=== PATIENT | female | born 1970 | race Caucasian/White ===

== ENCOUNTER 2018-04-05 09:59 | Observation (INO) ==
[2018-04-05] MEDS ORDERED: *HR* FentaNYL (PF) 100 MCG/2 ML VIAL IVP ONE ×2 (10:10→12:09)
[2018-04-05] MEDS ORDERED: Ondansetron 4 MG/2 ML VIAL IVP ONE (10:10)
--- NOTE | 2018-04-05 10:20 | Emergency Department Note ---
Disposition Clinical Impression: Biliary colic Disposition: Admitted As Inpatient Time of Disposition: 16:55 Abdominal Pain HPI - General Chief Complaint: ED Abdominal Pain Stated Complaint: Gallbladder pain,vomiting,ABD tenderness Time Seen by Provider: 04/05/18 10:06 Source: patient Mode of arrival: ambulatory Limitations: no limitations Nursing Notes Reviewed: Yes Vital Signs Reviewed: Yes - History of Present Illness Pt Subjective Complaint: abdominal pain Onset (ago): day(s) Consistency: constant Location: RUQ, epigastric Pain Severity: severe Pain Scale: 10 Quality: aching Radiation: RUQ Migration to: no migration Improves with: nothing Worsens with: nothing Associated symptoms: Reports: nausea, fever, chills Treatments prior to arrival: other (Seen in the emergency department several days ago for similar symptoms and had a CT scan.) - Related Data Home Medications Medication Instructions Recorded Confirmed HYDROcodone/Acet 7.5/325 mg [[place] 1 tab PO Q6H PRN 02/23/15 04/05/18 7.5-325 mg] Montelukast [Singulair] 10 mg PO DAILY 02/23/15 04/05/18 Loratadine [Allergy Relief] 10 mg PO DAILY 04/29/16 04/05/18 SUMAtriptan succinate [Imitrex] 50 mg PO Q2H PRN 04/29/16 04/05/18 Beclomethasone Diprop 80mcg [Qvar 1 puff IH BID 04/05/18 04/05/18 80 mcg] Celecoxib [Celebrex] 100 mg PO BID 04/05/18 04/05/18 Linaclotide [Linzess] 290 mcg PO DAILY 04/05/18 04/05/18 Pantoprazole Sodium [Protonix] 40 mg PO DAILY 04/05/18 04/05/18 Ranitidine HCl [Acid Vp Rheumatology] 150 mg PO DAILY 04/05/18 04/05/18 Tizanidine HCl 4 mg PO TID 04/05/18 04/05/18 Topiramate [Topamax] 100 mg PO BID 04/05/18 04/05/18 lamoTRIgine [Lamictal] 100 mg PO BID 04/05/18 04/05/18 Previous Rx's Medication Instructions Recorded Albuterol Sulfate [Albuterol 2 puff IH QID #1 inhaler 07/02/17 Inhaler] Ondansetron [Zofran ODT] 8 mg SL Q8H #15 tab 04/02/18 Dicyclomine [Bentyl] 10 mg PO QID #20 capsule 04/03/18 Allergies Allergy/AdvReac Type Severity Reaction Status Date / Time sulfamethoxazole Allergy Hives Verified 04/02/18 19:05 [From Bactrim] trimethoprim [From Bactrim] Allergy Hives Verified 04/02/18 19:05 Amoxicillin [From Augmentin] AdvReac Vomiting Verified 04/02/18 19:05 clavulanic acid AdvReac Vomiting Verified 04/02/18 19:05 [From Augmentin] Constitutional: Reports: fever, chills Eyes: Reports: as per HPI ENT ED: Reports: as per HPI Cardiovascular: Reports: as per HPI Respiratory: Reports: as per HPI Gastrointestinal: Reports: abdominal pain, nausea Genitourinary: Reports: as per HPI Musculoskeletal: Reports: as per HPI Integumentary: Reports: as per HPI Neurological: Reports: as per HPI Psychiatric: Reports: as per HPI Endocrine: Reports: as per HPI Hematological/Lymphatic: Reports: as per HPI Allergic/Immunologic: Reports: as per HPI Abdominal Pain PMH - Past Medical History Medical history: Reports: GERD 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 HAND history: Reports: bilateral tubal ligation Psychiatric history: Reports: bipolar - Social History Smoking status: Never smoker Alcohol use: Reports: none Drug use: Reports: none Physical Exam - General Limitations: no limitations General appearance: alert - Head Head exam: atraumatic - Eye Eye exam: Present: normal appearance - ENT ENT exam: normal exam - Neck Neck exam: Present: normal inspection - Chest Chest inspection: Present: normal inspection, symmetric chest wall rise - Respiratory Respiratory exam: Present: normal lung sounds bilaterally - Cardiovascular Cardiovascular exam: Present: regular rate, normal rhythm, normal heart sounds - Abdominal Exam Abdominal exam: Present: soft, tenderness (Diffusely tender with mild voluntary guarding. No peritonitis) Abdominal tenderness: Present: RUQ, epigastrium - Rectal Exam Rectal exam: Present: deferred - Extremities Exam Extremities exam: Present: normal inspection - Neurological Exam Neurological exam: Present: alert, oriented X3, CN II-XII intact - Psychiatric Psychiatric exam: Present: anxious - Skin Skin exam: Present: warm, dry, intact Course Course Narrative: Patient presents with upper abdominal pain. Her symptoms persist after an ED workup several days ago. I did review the transcribed report of her CT abdomen and pelvis dated 04/02/18 which showed a suspected lodged gallstone in the gallbladder neck. Concern for acute cholecystitis today. Workup initiated - Consultations Consultation #1: Call placed to Dr. Kent, surgery Vital Signs Temperature 98.6 F 04/05/18 10:01 Pulse Rate 92 04/05/18 10:01 Respiratory Rate 16 04/05/18 10:01 Blood Pressure 136/91 04/05/18 10:01 O2 Sat by Pulse Oximetry 99 04/05/18 10:01 Temperature 98.8 F 04/05/18 14:51 Pulse Rate 57 04/05/18 14:51 Respiratory Rate 16 04/05/18 15:52 Blood Pressure 138/77 04/05/18 14:51 O2 Sat by Pulse Oximetry 97 04/05/18 15:52 Oxygen Delivery Oxygen Delivery Room Air Abdominal Pain - Medical Records Medical records reviewed: Yes I reviewed the patient's medical records. - Lab Data Lab results reviewed: Yes I reviewed the patient's lab results. Result diagrams: 04/05/18 10:22 04/05/18 10:22 Lab Results 04/05/18 04/05/18 04/05/18 Range/Units 10:22 10:22 10:22 WBC 7.0 (4.3-11.1) K/mcL RBC 5.29 H (3.82-4.97) M/mcL Hgb 16.0 H (11.5-15.4) g/dL Hct 46.1 H (35.3-44.9) % MCV 87.1 (83.0-100.0) fL MCH 30.2 (28.0-33.3) pg MCHC 34.7 (31.6-35.5) g/dL RDW 12.4 (11.5-14.5) % Plt Count 295 (140-400) K/mcL MPV 10.0 (9.4-12.4) fL Immature Gran % 0.4 (0-4) % Seg Neutrophils % 70.8 % Lymphocytes % 22.2 % Monocytes % 5.6 % Eosinophils % 0.3 % Basophils % 0.7 % Neutrophils # 5.0 (1.6-8.9) K/mcL Lymphocytes # 1.6 (0.6-4.6) K/mcL Monocytes # 0.4 (0.0-1.3) K/mcL Eosinophils # 0.0 (0.0-0.6) K/mcL Basophils # 0.1 (0.0-0.2) K/mcL PT 13.7 H (9.4-12.1) Seconds INR 1.2 Sodium 137 (136-145) mEq/L Potassium 3.4 L (3.5-5.1) mEq/L Chloride 105 (98-107) mEq/L Carbon Dioxide 18 L (23-29) mEq/L BUN 11 (6-20) mg/dL Creatinine 0.82 (0.60-1.20) mg/dL Est GFR ( Amer) > 60 (> 60) Est GFR (Non-Af Amer) > 60 (> 60) BUN/Creatinine Ratio 13 (6-26) Glucose 94 (70-105) mg/dL Calculated Osmolality 283 (280-300) Calcium 9.7 (8.6-10.3) mg/dL Total Bilirubin 0.5 (0.3-1.0) mg/dL AST 12 L (13-39) Units/L ALT 6 L (7-52) Units/L Alkaline Phosphatase 60 (34-104) Units/L Serum Total Protein 7.4 (6.4-8.9) g/dL Albumin 4.5 (3.5-5.7) g/dL Globulin 2.9 (2.4-3.5) g/dL Albumin/Globulin Ratio 1.6 (1.1-2.2) Lipase 10 L (11-82) Units/L Urine Test (Negative) Blood Type Antibody Screen 04/05/18 04/05/18 Range/Units 10:22 10:28 WBC (4.3-11.1) K/mcL RBC (3.82-4.97) M/mcL Hgb (11.5-15.4) g/dL Hct (35.3-44.9) % MCV (83.0-100.0) fL MCH (28.0-33.3) pg MCHC (31.6-35.5) g/dL RDW (11.5-14.5) % Plt Count (140-400) K/mcL MPV (9.4-12.4) fL Immature Gran % (0-4) % Seg Neutrophils % % Lymphocytes % % Monocytes % % Eosinophils % % Basophils % % Neutrophils # (1.6-8.9) K/mcL Lymphocytes # (0.6-4.6) K/mcL Monocytes # (0.0-1.3) K/mcL Eosinophils # (0.0-0.6) K/mcL Basophils # (0.0-0.2) K/mcL PT (9.4-12.1) Seconds INR Sodium (136-145) mEq/L Potassium (3.5-5.1) mEq/L Chloride (98-107) mEq/L Carbon Dioxide (23-29) mEq/L BUN (6-20) mg/dL Creatinine (0.60-1.20) mg/dL Est GFR ( Amer) (> 60) Est GFR (Non-Af Amer) (> 60) BUN/Creatinine Ratio (6-26) Glucose (70-105) mg/dL Calculated Osmolality (280-300) Calcium (8.6-10.3) mg/dL Total Bilirubin (0.3-1.0) mg/dL AST (13-39) Units/L ALT (7-52) Units/L Alkaline Phosphatase (34-104) Units/L Serum Total Protein (6.4-8.9) g/dL Albumin (3.5-5.7) g/dL Globulin (2.4-3.5) g/dL Albumin/Globulin Ratio (1.1-2.2) Lipase (11-82) Units/L Urine Test Negative (Negative) Blood Type O POSITIVE Antibody Screen NEGATIVE - Radiology Data Radiology results reviewed: Yes I reviewed the patient's radiology results.
[2018-04-05 10:41] LABS: Basophils # 0.1 K/mcL (0.0-0.2); Basophils % 0.7 %; Eosinophils % 0.3 %; Hematocrit 46.1 % (35.3-44.9); Immature Granulocytes % 0.4 % (0-4); Lymphocytes # 1.6 K/mcL (0.6-4.6); Lymphocytes % 22.2 %; Mean Corpuscular HGB Conc 34.7 g/dL (31.6-35.5); Mean Corpuscular Hemoglobin 30.2 pg (28.0-33.3); Mean Corpuscular Volume 87.1 fL (83.0-100.0); Monocytes # 0.4 K/mcL (0.0-1.3); Monocytes % 5.6 %; Platelet Count 295 K/mcL (140-400); Red Blood Count 5.29 M/mcL (3.82-4.97); Red Cell Distribution Width 12.4 % (11.5-14.5); Segmented Neutrophils % 70.8 %
[2018-04-05 10:52] LABS: INR 1.2; Prothrombin Time 13.7 Seconds (9.4-12.1)
[2018-04-05 11:30] LABS: Alanine Aminotransferase 6 Units/L (7-52); Albumin 4.5 g/dL (3.5-5.7); Albumin/Globulin Ratio 1.6 (1.1-2.2); Alkaline Phosphatase 60 Units/L (34-104); Aspartate Amino Transferase 12 Units/L (13-39); BUN/Creatinine Ratio 13 (6-26); Bilirubin,Total 0.5 mg/dL (0.3-1.0); Blood Urea Nitrogen 11 mg/dL (6-20); Calcium 9.7 mg/dL (8.6-10.3); Carbon Dioxide 18 mEq/L (23-29); Chloride 105 mEq/L (98-107); Globulin 2.9 g/dL (2.4-3.5); Glucose 94 mg/dL (70-105); Lipase 10 Units/L (11-82); Osmolality,Calculated 283 (280-300); Potassium 3.4 mEq/L (3.5-5.1); Sodium 137 mEq/L (136-145); Total Protein 7.4 g/dL (6.4-8.9); eGFR For Non-African Americans > 60 (> 60)
[2018-04-05] MEDS ORDERED: Naloxone 0.4 MG/ML INJ IVP PRN (12:44)
[2018-04-05] MEDS ORDERED: Ondansetron 4 MG/2 ML VIAL IVP PRN ×2 (12:44→13:54)
[2018-04-05] MEDS ORDERED: *HR* Morphine Soln 10 MG/5 ML UDC PO PRN (12:48)
[2018-04-05] MEDS ORDERED: OXYCODONE Oral CONC 10 MG/0.5 ML ORAL.SYG SL PRN (12:48)
[2018-04-05] MEDS ORDERED: Acetaminophen 325 MG TABLET PO PRN (12:48)
[2018-04-05] MEDS ORDERED: Potassium Chloride 20 MEQ, Lidocaine 1% 2 ML in D5% in Water 250 ML IVPB ONE (12:49)
[2018-04-05] MEDS ORDERED: SUMAtriptan succinate 50 MG TABLET PO PRN (13:20)
--- NOTE | 2018-04-05 13:41 | General Surg History&Physical ---
<Misa Zaidi - Last Filed: 04/05/18 13:35> Date of Encounter: 04/05/18 Time of Encounter: 13:15 Assessment and Plan (1) Symptomatic cholelithiasis Current Visit: Yes Status: Acute The assessment and plan as outlined above was discussed with the patient and/or family members who expressed understanding and agreement. All questions were answered. Admit to Dr. Kent's service Clear liquids NPO after midnight IV fluids Supportive care and pain control PPI therapy daily IS every 1 hour while awake Ambulate hallways TID with assistance AM labs- CBC, BMP, Hepatic panel Plan for laparoscopic cholecystectomy with cholangiogram with Dr. Kent in the next 24 hours (2) Nausea and vomiting Current Visit: No Status: Acute The assessment and plan as outlined above was discussed with the patient and/or family members who expressed understanding and agreement. All questions were answered. IV fluids Supportive care Qualifiers: Vomiting type: unspecified Vomiting Intractability: non-intractable Qualified Code(s): R11.2 - Nausea with vomiting, unspecified (3) GERD (gastroesophageal reflux disease) Current Visit: Yes Status: Acute The assessment and plan as outlined above was discussed with the patient and/or family members who expressed understanding and agreement. All questions were answered. PPI therapy daily Qualifiers: Esophagitis presence: esophagitis presence not specified Qualified Code(s) : K21.9 - Gastro-esophageal reflux disease without esophagitis (4) Asthma Current Visit: Yes Status: Chronic The assessment and plan as outlined above was discussed with the patient and/or family members who expressed understanding and agreement. All questions were answered. Resume home medication regimen IS every 1 hour while awake Qualifiers: Asthma severity: unspecified severity Asthma persistence: unspecified Asthma complication type: unspecified Qualified Code(s): J45.909 - Unspecified asthma, uncomplicated (5) Migraine Current Visit: Yes Status: Chronic The assessment and plan as outlined above was discussed with the patient and/or family members who expressed understanding and agreement. All questions were answered. Resume home medication regimen Qualifiers: Migraine type: unspecified Status migrainosus presence: without status migrainosus Intractability: not intractable Qualified Code(s): G43.909 - Migraine, unspecified, not intractable, without status migrainosus (6) Bipolar disorder Current Visit: Yes Status: Chronic The assessment and plan as outlined above was discussed with the patient and/or family members who expressed understanding and agreement. All questions were answered. Resume home medication regimen Qualifiers: Active/Remission status: remission status unspecified Qualified Code(s): F31.9 - Bipolar disorder, unspecified (7) DVT prophylaxis Current Visit: Yes Status: Acute The assessment and plan as outlined above was discussed with the patient and/or family members who expressed understanding and agreement. All questions were answered. EPCDs to bilateral lower extremities for DVT prophylaxis Ambulate hallways TID with assistance History of Present Illness Chief complaint: Abdominal pain HPI: Ms. Tapia is a 48 year old female with multiple co-morbidities. She presents to the ED with complaints of generalized abdominal pain with associated nausea and vomiting. She reports that she has had abdominal pain for the past 5 days. She reports that it has progressively worsened over the past 5 days. She states that the pain is constant and all over without specific focus. She has never experienced pain like this in the past. She states that food/drink aggrevates her symptoms. Nothing relieves her symptoms. She reports multiple episodes of nausea and vomiting for the past 5 days. She has no appetite. She has had small amounts of red blood with vomiting. She admits to chills but denies any fevers. Denies any changes in bowel habits. Admits to reflux which is new. Denies any shortness of breath or chest pains. She does report that it is painful to take a deep breath. Denies any difficulty with urination. She has had an US complete in the ED which demonstrate a gallstone within the neck of the gallbladder. The patient will be admitted to the hospital for further work-up and treatment. Past Med Surg Social Fam HX - Past Medical History Source: patient, old records reviewed Medical history: arthritis, asthma, GERD, migraine Additional medical history: Constipation, Chronic low back pain associated with DDD, Migrain headaches, Chronic hip pain, Osteoarthritis Psychiatric history: bipolar - Past Surgical History Surgical History: appendectomy Additional surgical history: Luis Armando Fundoplication, Tubal ligation, D&D with endometrial ablation, Right wrist carpel tunnel release, arthroscopy - Social History Smoking Status: Never smoker Smokeless Tobacco Status: No Alcohol use: none Drug use: none Current living situation: Home - Independent Activity Level: Independent ambulation - Family History Mother Living Status: Still Living Father Living Status: Age at : 50 Cause of : Myocardial infarction Hx Family Cardiac Disorders: Yes Medications and Allergies HYDROcodone/Acet 7.5/325 mg [[place] 7.5-325 mg] 1 tab PO Q6H PRN 02/23/15 [ History] Montelukast [Singulair] 10 mg PO DAILY 02/23/15 [History] Loratadine [Allergy Relief] 10 mg PO DAILY 04/29/16 [History] SUMAtriptan succinate [Imitrex] 50 mg PO Q2H PRN 04/29/16 [History] Albuterol Sulfate [Albuterol Inhaler] 2 puff IH QID #1 inhaler 07/02/17 [Rx] Ondansetron [Zofran ODT] 8 mg SL Q8H #15 tab 04/02/18 [Rx] Dicyclomine [Bentyl] 10 mg PO QID #20 capsule 04/03/18 [Rx] Beclomethasone Diprop 80mcg [Qvar 80 mcg] 1 puff IH BID 04/05/18 [History] Celecoxib [Celebrex] 100 mg PO BID 04/05/18 [History] Linaclotide [Linzess] 290 mcg PO DAILY 04/05/18 [History] Pantoprazole Sodium [Protonix] 40 mg PO DAILY 04/05/18 [History] Ranitidine HCl [Acid Gas Burner Operator] 150 mg PO DAILY 04/05/18 [History] Tizanidine HCl 4 mg PO TID 04/05/18 [History] Topiramate [Topamax] 100 mg PO BID 04/05/18 [History] lamoTRIgine [Lamictal] 100 mg PO BID 04/05/18 [History] 3 Allergy/AdvReac Type Severity Reaction Status Date / Time sulfamethoxazole Allergy Hives Verified 04/02/18 19:05 [From Bactrim] trimethoprim [From Bactrim] Allergy Hives Verified 04/02/18 19:05 Amoxicillin [From Augmentin] AdvReac Vomiting Verified 04/02/18 19:05 clavulanic acid AdvReac Vomiting Verified 04/02/18 19:05 [From Augmentin] Review of Systems All systems PM: reviewed and no additional remarkable complaints except as stated (in the HPI) All systems PM: The remainder of the systems were reviewed and are negative General Surgery Exam Initial Vital Signs Temp Pulse Resp BP Pulse Ox 98.6 F 92 16 136/91 99 04/05/18 10:01 04/05/18 10:01 04/05/18 10:01 04/05/18 10:01 04/05/18 10:01 - General physical appearance well developed, well nourished, moderate distress, moderate pain - Eyes PERRL, normal ocular movement - ENT normal mucosa, atraumatic, normocephalic - Neck trachea midline - Respiratory normal respiratory effort, clear to auscultation - Cardiovascular Cardiovascular exam: Present: RRR - Abdomen Abdomen general surgery: Present: bowel sounds present, soft, tender Abdominal Tenderness: Present: diffusely - Integumentary Integumentary general surgery: Present: warm and dry - Neurologic Present: CN 2-12 grossly intact - Psychiatric Psychiatric general surgery: Present: appropriate, oriented to person, oriented to place, oriented to time, speech is normal, memory intact Results - Labs 04/05/18 10:22 04/05/18 10:22 Abnormal lab results RBC 5.29 M/mcL (3.82-4.97) H 04/05/18 10:22 Hgb 16.0 g/dL (11.5-15.4) H 04/05/18 10:22 Hct 46.1 % (35.3-44.9) H 04/05/18 10:22 PT 13.7 Seconds (9.4-12.1) H 04/05/18 10:22 Potassium 3.4 mEq/L (3.5-5.1) L 04/05/18 10:22 Carbon Dioxide 18 mEq/L (23-29) L 04/05/18 10:22 AST 12 Units/L (13-39) L 04/05/18 10:22 ALT 6 Units/L (7-52) L 04/05/18 10:22 Lipase 10 Units/L (11-82) L 04/05/18 10:22 Diabetes panel 04/05/18 Range/Units 10:22 Sodium 137 (136-145) mEq/L Potassium 3.4 L (3.5-5.1) mEq/L Chloride 105 (98-107) mEq/L Carbon Dioxide 18 L (23-29) mEq/L BUN 11 (6-20) mg/dL Creatinine 0.82 (0.60-1.20) mg/dL Glucose 94 (70-105) mg/dL Calcium 9.7 (8.6-10.3) mg/dL AST 12 L (13-39) Units/L ALT 6 L (7-52) Units/L Alkaline Phosphatase 60 (34-104) Units/L Albumin 4.5 (3.5-5.7) g/dL Calcium panel 04/05/18 Range/Units 10:22 Calcium 9.7 (8.6-10.3) mg/dL Albumin 4.5 (3.5-5.7) g/dL Pituitary panel 04/05/18 Range/Units 10:22 Sodium 137 (136-145) mEq/L Potassium 3.4 L (3.5-5.1) mEq/L Chloride 105 (98-107) mEq/L Carbon Dioxide 18 L (23-29) mEq/L BUN 11 (6-20) mg/dL Creatinine 0.82 (0.60-1.20) mg/dL Glucose 94 (70-105) mg/dL Calcium 9.7 (8.6-10.3) mg/dL Adrenal panel 04/05/18 Range/Units 10:22 Sodium 137 (136-145) mEq/L Potassium 3.4 L (3.5-5.1) mEq/L Chloride 105 (98-107) mEq/L Carbon Dioxide 18 L (23-29) mEq/L BUN 11 (6-20) mg/dL Creatinine 0.82 (0.60-1.20) mg/dL Glucose 94 (70-105) mg/dL Calcium 9.7 (8.6-10.3) mg/dL Total Bilirubin 0.5 (0.3-1.0) mg/dL AST 12 L (13-39) Units/L ALT 6 L (7-52) Units/L Alkaline Phosphatase 60 (34-104) Units/L Albumin 4.5 (3.5-5.7) g/dL All other labs normal. - Imaging US - abdomen: report reviewed Additional studies: Gallbladder Ultrasound 04/05/18 10:13 IMPRESSION: Suspected 9 mm nonshadowing stone in the gallbladder neck. No evidence of acute cholecystitis. No biliary dilation. D/ / Warren Brewer MD / Warren Brewer MD Interpreting Provider: Warren Brewer MD - Attending Attestation For this encounter, I have reviewed the RESEARCH AND EVALUATION MANAGER or PA documentation, treatment plan, and medical decision making; and I have had face to face time with this patient. <Kalpesh Kent - Last Filed: 04/05/18 15:44> Date of Encounter: 04/05/18 Assessment and Plan (1) Nausea and vomiting Current Visit: No Status: Acute The assessment and plan as outlined above was discussed with the patient and/or family members who expressed understanding and agreement. All questions were answered. Qualifiers: Vomiting type: unspecified Vomiting Intractability: non-intractable Qualified Code(s): R11.2 - Nausea with vomiting, unspecified (2) Symptomatic cholelithiasis Current Visit: Yes Status: Acute The assessment and plan as outlined above was discussed with the patient and/or family members who expressed understanding and agreement. All questions were answered. (3) GERD (gastroesophageal reflux disease) Current Visit: Yes Status: Acute The assessment and plan as outlined above was discussed with the patient and/or family members who expressed understanding and agreement. All questions were answered. Qualifiers: Esophagitis presence: esophagitis presence not specified Qualified Code(s) : K21.9 - Gastro-esophageal reflux disease without esophagitis (4) Asthma Current Visit: Yes Status: Chronic The assessment and plan as outlined above was discussed with the patient and/or family members who expressed understanding and agreement. All questions were answered. Qualifiers: Asthma severity: unspecified severity Asthma persistence: unspecified Asthma complication type: unspecified Qualified Code(s): J45.909 - Unspecified asthma, uncomplicated (5) Migraine Current Visit: Yes Status: Chronic The assessment and plan as outlined above was discussed with the patient and/or family members who expressed understanding and agreement. All questions were answered. Qualifiers: Migraine type: unspecified Status migrainosus presence: without status migrainosus Intractability: not intractable Qualified Code(s): G43.909 - Migraine, unspecified, not intractable, without status migrainosus (6) Bipolar disorder Current Visit: Yes Status: Chronic The assessment and plan as outlined above was discussed with the patient and/or family members who expressed understanding and agreement. All questions were answered. Qualifiers: Active/Remission status: remission status unspecified Qualified Code(s): F31.9 - Bipolar disorder, unspecified (7) DVT prophylaxis Current Visit: Yes Status: Acute The assessment and plan as outlined above was discussed with the patient and/or family members who expressed understanding and agreement. All questions were answered. History of Present Illness HPI: Ms. Tapia is a 48 year old female Review of Systems All systems PM: The remainder of the systems were reviewed and are negative General Surgery Exam Initial Vital Signs Temp Pulse Resp BP Pulse Ox 98.6 F 92 16 136/91 99 04/05/18 10:01 04/05/18 10:01 04/05/18 10:01 04/05/18 10:01 04/05/18 10:01 Results - Labs 04/05/18 10:22 04/05/18 10:22 Abnormal lab results RBC 5.29 M/mcL (3.82-4.97) H 04/05/18 10:22 Hgb 16.0 g/dL (11.5-15.4) H 04/05/18 10:22 Hct 46.1 % (35.3-44.9) H 04/05/18 10:22 PT 13.7 Seconds (9.4-12.1) H 04/05/18 10:22 Potassium 3.4 mEq/L (3.5-5.1) L 04/05/18 10:22 Carbon Dioxide 18 mEq/L (23-29) L 04/05/18 10:22 AST 12 Units/L (13-39) L 04/05/18 10:22 ALT 6 Units/L (7-52) L 04/05/18 10:22 Lipase 10 Units/L (11-82) L 04/05/18 10:22 All other labs normal. - Attending Attestation I have personally performed a face to face evaluation on this patient. I have reviewed and agree with the care plan. History and Exam by me shows: The patient is seen and evaluated with the clinical nurse practitioner. I personally reviewed her ultrasound films and her CAT scan films as well as laboratory studies. She appears to have cholelithiasis with recalcitrant biliary colic. I have recommended laparoscopic cholecystectomy, cholangiogram. She understands this and we will place her on the operating room schedule for tomorrow. Kalpesh Kent MD FACS
[2018-04-05] MEDS: 0.9 % Sodium Chloride 1,000 ML IVC SCH (14:40)
[2018-04-05] MEDS: tiZANidine 4 MG TABLET PO SCH ×2 (14:40→21:18)
[2018-04-05] MEDS: *HR* Promethazine 25 MG/ML VIAL IVP PRN ×2 (16:27→21:17)
[2018-04-05] MEDS: *HR* FentaNYL (PF) 100 MCG/2 ML VIAL IVP PRN ×2 (17:11→21:17)
[2018-04-05] MEDS: Beclomethasone 80mcg MDI IH SCH (21:07)
[2018-04-05] MEDS: Celecoxib 100 MG CAPSULE PO SCH (21:17)
[2018-04-05] MEDS: Topiramate 100 MG TABLET PO SCH (21:18)
[2018-04-05] MEDS: lamoTRIgine 100 MG TABLET PO SCH (21:18)
--- NOTE | 2018-04-05 23:06 | Anesthesia Evaluation PreOp ---
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 Chronic Back pain. Migraines) Other Medical History: Denies Any Significant HX, GERD Anesthesia History: No Prior Anesthetic Complications, Past Anesthesia (R-wrist scope x2, Appy, Luis Armando 2008, BTL, D&C/Endometrial ablation, R-eCTR) : No Test: Negative Alcohol Use: none Drug use: none Medications and Allergies HYDROcodone/Acet 7.5/325 mg [[place] 7.5-325 mg] 1 tab PO Q6H PRN 02/23/15 [ History] Montelukast [Singulair] 10 mg PO DAILY 02/23/15 [History] Loratadine [Allergy Relief] 10 mg PO DAILY 04/29/16 [History] SUMAtriptan succinate [Imitrex] 50 mg PO Q2H PRN 04/29/16 [History] Albuterol Sulfate [Albuterol Inhaler] 2 puff IH QID #1 inhaler 07/02/17 [Rx] Ondansetron [Zofran ODT] 8 mg SL Q8H #15 tab 04/02/18 [Rx] Dicyclomine [Bentyl] 10 mg PO QID #20 capsule 04/03/18 [Rx] Beclomethasone Diprop 80mcg [Qvar 80 mcg] 1 puff IH BID 04/05/18 [History] Celecoxib [Celebrex] 100 mg PO BID 04/05/18 [History] Linaclotide [Linzess] 290 mcg PO DAILY 04/05/18 [History] Pantoprazole Sodium [Protonix] 40 mg PO DAILY 04/05/18 [History] Ranitidine HCl [Acid Real Estate Rep] 150 mg PO DAILY 04/05/18 [History] Tizanidine HCl 4 mg PO TID 04/05/18 [History] Topiramate [Topamax] 100 mg PO BID 04/05/18 [History] lamoTRIgine [Lamictal] 100 mg PO BID 04/05/18 [History] 3 Allergy/AdvReac Type Severity Reaction Status Date / Time sulfamethoxazole Allergy Hives Verified 04/02/18 19:05 [From Bactrim] trimethoprim [From Bactrim] Allergy Hives Verified 04/02/18 19:05 Amoxicillin [From Augmentin] AdvReac Vomiting Verified 04/02/18 19:05 clavulanic acid AdvReac Vomiting Verified 04/02/18 19:05 [From Augmentin] - Meds/Allergy Pre-op Review Medications Reviewed: Yes Allergies Reviewed: Yes Beta Blockers on Current Med List: No Anesthesia Results - Labs 04/05/18 10:22 04/05/18 10:22 Laboratory Results Laboratory Tests 04/05/18 04/05/18 04/05/18 10:22 10:22 10:28 PT 13.7 H INR 1.2 Est GFR (Non-Af Amer) > 60 Urine Test Negative Impressions Gallbladder Ultrasound 04/05/18 10:13 IMPRESSION: Suspected 9 mm nonshadowing stone in the gallbladder neck. No evidence of acute cholecystitis. No biliary dilation. D/ / Warren Brewer MD / Warren Brewer MD Interpreting Provider: Warren Brewer MD - Imaging EKG: report reviewed Anesthesia Exam Vital Signs Temp Pulse Resp BP Pulse Ox 04/05/18 21:07 16 96 04/05/18 20:06 98.6 F 60 16 106/67 96 04/05/18 15:52 16 97 04/05/18 14:51 98.8 F 57 16 138/77 100 04/05/18 14:05 60 15 131/79 97 04/05/18 12:16 61 129/79 04/05/18 10:37 98.6 F 92 16 136/91 99 04/05/18 10:01 98.6 F 92 16 136/91 99 Patient Weight 04/05/18 23:59 Weight 81.193 kg Height: 5'7" Weight: 178# BMI = 28 NPO (# of Hours): MNoc Pain Scale Used: Numeric (1 - 10) - HEENT Pupil (Motor): Pupils equal, EOMI Mallampati: II Teeth: Normal Oral Opening: Greater than 3 - EMPLOYMENT AGENCY MANAGER LOC: Oriented EMPLOYMENT AGENCY MANAGER Motor: Normal RUE, Normal LUE, Normal RLE, Normal LLE, Normal Face EMPLOYMENT AGENCY MANAGER Sensory: Normal: RUE, LUE, RLE, LLE, Face - Cardiac Rhythm: Regular Murmur: None - Pulmonary Breath Sounds: bilateral Clear Respiratory Effort: Symmetrical Anesthesia Assess/Plan ASA Score: 2 (BiPolar, Asthma/restrictive airway Dz, DARRIUS)
[2018-04-06] MEDS: *HR* Promethazine 25 MG/ML VIAL IVP PRN ×4 (04:10→16:26)
[2018-04-06] MEDS: *HR* FentaNYL (PF) 100 MCG/2 ML VIAL IVP PRN ×5 (04:11→20:14)
[2018-04-06 04:13] LABS: Basophils % 0.7 %; Eosinophils # 0.1 K/mcL (0.0-0.6); Eosinophils % 1.1 %; Hematocrit 39.8 % (35.3-44.9); Hemoglobin 13.3 g/dL (11.5-15.4); Immature Granulocytes % 0.2 % (0-4); Lymphocytes # 1.2 K/mcL (0.6-4.6); Lymphocytes % 26.9 %; Mean Corpuscular HGB Conc 33.4 g/dL (31.6-35.5); Mean Corpuscular Hemoglobin 29.8 pg (28.0-33.3); Mean Corpuscular Volume 89.2 fL (83.0-100.0); Mean Platelet Volume 9.9 fL (9.4-12.4); Monocytes # 0.4 K/mcL (0.0-1.3); Neutrophils # 2.8 K/mcL (1.6-8.9); Platelet Count 231 K/mcL (140-400); Red Blood Count 4.46 M/mcL (3.82-4.97); Red Cell Distribution Width 12.6 % (11.5-14.5); Segmented Neutrophils % 63.1 %
[2018-04-06] MEDS: 0.9 % Sodium Chloride 1,000 ML IVC SCH ×2 (04:22→19:46)
[2018-04-06 04:34] LABS: Alanine Aminotransferase 5 Units/L (7-52); Albumin 3.7 g/dL (3.5-5.7); Albumin/Globulin Ratio 1.9 (1.1-2.2); Alkaline Phosphatase 51 Units/L (34-104); Aspartate Amino Transferase 10 Units/L (13-39); BUN/Creatinine Ratio 13 (6-26); Bilirubin,Direct 0.2 mg/dL (0.0-0.2); Bilirubin,Indirect 0.3 mg/dL (0.0-1.2); Bilirubin,Total 0.5 mg/dL (0.3-1.0); Blood Urea Nitrogen 10 mg/dL (6-20); Calcium 8.9 mg/dL (8.6-10.3); Carbon Dioxide 22 mEq/L (23-29); Chloride 106 mEq/L (98-107); Glucose 90 mg/dL (70-105); Osmolality,Calculated 279 (280-300); Potassium 3.6 mEq/L (3.5-5.1); Sodium 135 mEq/L (136-145); Total Protein 5.7 g/dL (6.4-8.9); eGFR For Non-African Americans > 60 (> 60)
[2018-04-06] MEDS: Celecoxib 100 MG CAPSULE PO SCH ×2 (08:04→21:53)
[2018-04-06] MEDS: tiZANidine 4 MG TABLET PO SCH ×3 (08:04→21:55)
[2018-04-06] MEDS: Topiramate 100 MG TABLET PO SCH ×2 (08:14→21:54)
[2018-04-06] MEDS: lamoTRIgine 100 MG TABLET PO SCH ×2 (08:14→21:53)
[2018-04-06] MEDS ORDERED: Loratadine 10 MG TABLET PO SCH (09:00)
[2018-04-06] MEDS ORDERED: (Linaclotide [Linzess] 290 MCG) PO SCH (09:00)
[2018-04-06] MEDS: Beclomethasone 80mcg MDI IH SCH ×2 (10:59→22:26)
[2018-04-06] MEDS ORDERED: Albuterol 2.5 MG/3 ML NEBULIZER IH ONE (16:59)
[2018-04-06] MEDS ORDERED: cefOXitin 1,000 MG, 0.9 % Sodium Chloride 1,000 ML IR ONE (17:30)
[2018-04-06] MEDS ORDERED: Isovue-300 50 ML VIAL IVP ONE (17:30)
[2018-04-06] MEDS ORDERED: *HR* Rocuronium Bromide 50 MG/5 ML VIAL ONE (17:38)
[2018-04-06] MEDS ORDERED: *HR* Midazolam HCl 2 MG/2 ML VIAL ONE (17:38)
[2018-04-06] MEDS ORDERED: Dexamethasone 4 MG/ML VIAL ONE ×2 (17:38→18:35)
[2018-04-06] MEDS ORDERED: *HR* Succinylcholine 200 MG/10 ML VIAL IVP ONE (17:38)
[2018-04-06] MEDS ORDERED: Lidocaine -MPF 2% 2 ML VIAL ONE (17:38)
[2018-04-06] MEDS ORDERED: *HR* FentaNYL (PF) 100 MCG/2 ML VIAL ONE ×2 (17:38→18:01)
[2018-04-06] MEDS ORDERED: Neostigmine Methylsulfate 3 MG/3 ML SYRINGE ONE (17:38)
[2018-04-06] MEDS ORDERED: Ondansetron 4 MG/2 ML VIAL ONE (17:38)
[2018-04-06] MEDS ORDERED: *HR* Propofol 200 MG/20 ML VIAL IVP ONE (17:39)
[2018-04-06] MEDS ORDERED: *HR* Meperidine 25 MG/ML SYRINGE IVP PRN ×2 (18:26→19:34)
[2018-04-06] MEDS ORDERED: *HR* Promethazine 25 MG/ML VIAL IVP PRN ×3 (18:26→19:34)
[2018-04-06] MEDS ORDERED: *HR* HYDROmorphone (PF) 1 MG/ML SYRINGE IVP PRN ×2 (18:26→19:34)
[2018-04-06] MEDS ORDERED: *HR* OxyCODONE Immed Rel 5 MG TABLET PO PRN ×2 (18:26→19:34)
[2018-04-06] MEDS ORDERED: Ondansetron 4 MG/2 ML VIAL IVP ONE ×2 (18:26→19:34)
[2018-04-06] MEDS ORDERED: *HR* Morphine 10 MG/ML VIAL ONE (18:35)
--- NOTE | 2018-04-06 18:35 | Operative Note ---
Date of procedure: 04/06/18 Pre-op diagnosis: Cholelithiasis Post-op diagnosis: same Procedure: Laparoscopic cholecystectomy, cholangiogram Anesthesia: SANDRA Surgeon: Kalpesh Kent Was there an sound assistant present: Yes Appointment Scheduler: Nadine Ramirez Estimated blood loss (cc): 10 Specimen: Gallbladder and contents Condition: stable Disposition: PACU Procedure in Detail: Laparoscopic cholecystectomy and intraoperative cholangiogram Operative procedure after informed consent and appropriate patient identification timeout the patient was taken to the major operating suite and placed supine position given adequate general endotracheal anesthesia the abdomen is prepped and draped in sterile fashion utilizing ChloraPrep standard draping techniques timeout was taken patient is identified. I made a vertical midline incision below the umbilicus dissected down to level of fascia there are 2 traction stitches placed in the abdominal cavity was entered visually. A Raymundo trocar was placed in the abdomen and the abdomen was insufflated to 15 mmHg pressure CO2 the gallbladder was visualized. A placement 11 port in the subxiphoid area and 2 5 mm ports in the subcostal area. The gallbladder was grasped and elevated. A variety of blunt and sharp dissection techniques were used to isolate the cystic duct and cystic artery. The cystic artery was controlled with 2 surgical clips proximally and one distally and it was divided I placed a surgical clip on the neck the gallbladder and obtained an intraoperative cholangiogram using 10 mL of Isovue. Intraoperative cholangiogram was normal appearing with a possible very small distal common bile duct stone which was nonobstructing. Liver function tests were noted to be normal. Clinical follow-up is recommended. The cholangiocatheter was removed and the cystic duct was controlled with 2 surgical clips proximally and was divided the gallbladder was removed from the gallbladder fossae using electrocautery. The gallbladder was removed through the #11 port site. I replaced the #11 port and irrigated with copious amounts of antibiotic containing solution. There is no evidence of bleeding or bile leak. All trochars were removed. Fascia was closed with 0 Vicryl skin with 2- 0 and 4-0 Vicryl She tolerated the procedure well and was transferred to recovery in stable condition
[2018-04-06] MEDS ORDERED: Ketorolac 30 MG/ML VIAL ONE (18:38)
[2018-04-06] MEDS ORDERED: CefOXitin 2,000 MG VIAL ONE (18:48)
--- NOTE | 2018-04-06 19:11 | Anesthesia Evaluation Post Op ---
Date of Encounter: 04/06/18 Time of Encounter: 19:09 - Vital Signs Vital Signs: Vital Signs/O2 Sat, Most Current Temp Pulse Resp BP Pulse Ox 97.8 F 54 16 132/75 96 04/06/18 18:43 04/06/18 19:03 04/06/18 19:03 04/06/18 19:03 04/06/18 19:03 - Lungs Lungs: Clear Ascult./Percussion - Airway Airway: Non-obstructed - Cardiovascular Regular Rate - Mental Status Mental Status: Asleep with brisk response to light stimulation - Pain Pain Scale used: Numeric (1 - 10) (tolerable) - Nausea Vomiting Nausea Vomiting: Not Present - Hydration Hydration: NPO - Discharge PostOp Status: Transfer Patient to floor
[2018-04-06] MEDS ORDERED: *HR* Morphine Soln 10 MG/5 ML UDC PO PRN (19:34)
[2018-04-06] MEDS ORDERED: Acetaminophen 325 MG TABLET PO PRN (19:34)
[2018-04-06] MEDS ORDERED: 0.9 % Sodium Chloride 1,000 ML IVC SCH (19:34)
[2018-04-06] MEDS ORDERED: SUMAtriptan succinate 50 MG TABLET PO PRN (19:34)
[2018-04-06] MEDS ORDERED: Ondansetron 4 MG/2 ML VIAL IVP PRN (19:34)
[2018-04-06] MEDS ORDERED: Naloxone 0.4 MG/ML INJ IVP PRN (19:34)
[2018-04-07] MEDS: cefOXitin 2,000 MG in Water for inj. (sterile) 20 ML 20 ML IVP SCH ×2 (00:19→10:01)
[2018-04-07] MEDS: *HR* FentaNYL (PF) 100 MCG/2 ML VIAL IVP PRN ×2 (00:19→04:10)
[2018-04-07] MEDS: Topiramate 100 MG TABLET PO SCH (08:53)
[2018-04-07] MEDS: tiZANidine 4 MG TABLET PO SCH (08:53)
[2018-04-07] MEDS: lamoTRIgine 100 MG TABLET PO SCH (08:54)
[2018-04-07] MEDS: Celecoxib 100 MG CAPSULE PO SCH (08:54)
[2018-04-07] MEDS ORDERED: (Linaclotide [Linzess] 290 MCG) PO SCH (09:00)
[2018-04-07] MEDS ORDERED: Loratadine 10 MG TABLET PO SCH (09:00)
[2018-04-07 11:35] VITALS: BP 111/71
[2018-04-07] MEDS: Beclomethasone 80mcg MDI IH SCH (11:45)
--- NOTE | 2018-04-07 14:12 | Discharge Summary ---
<Misa Zaidi - Last Filed: 04/07/18 14:10> Orders not resulted at time of discharge: Pending orders 04/06/18 18:23 Surgical Pathology [PTH] Routine Date of Encounter: 04/07/18 Time of Encounter: 14:14 - Discharge Diagnosis (1) Symptomatic cholelithiasis Priority: Primary Status: Resolved (2) Nausea and vomiting Priority: Secondary Status: Resolved Qualifiers: Vomiting type: unspecified Vomiting Intractability: non-intractable Qualified Code(s): R11.2 - Nausea with vomiting, unspecified (3) GERD (gastroesophageal reflux disease) Priority: Secondary Status: Resolved Qualifiers: Esophagitis presence: esophagitis presence not specified Qualified Code(s) : K21.9 - Gastro-esophageal reflux disease without esophagitis (4) Asthma Priority: Secondary Status: Chronic Qualifiers: Asthma severity: unspecified severity Asthma persistence: unspecified Asthma complication type: unspecified Qualified Code(s): J45.909 - Unspecified asthma, uncomplicated (5) Migraine Priority: Secondary Status: Chronic Qualifiers: Migraine type: unspecified Status migrainosus presence: without status migrainosus Intractability: not intractable Qualified Code(s): G43.909 - Migraine, unspecified, not intractable, without status migrainosus (6) Bipolar disorder Priority: Secondary Status: Chronic Qualifiers: Active/Remission status: remission status unspecified Qualified Code(s): F31.9 - Bipolar disorder, unspecified General Surgery Exam Initial Vital Signs Temp Pulse Resp BP Pulse Ox 98.6 F 92 16 136/91 99 04/05/18 10:01 04/05/18 10:01 04/05/18 10:01 04/05/18 10:01 04/05/18 10:01 - General physical appearance well developed, well nourished, no distress - Eyes normal ocular movement - ENT normal mucosa, atraumatic, normocephalic - Neck trachea midline - Respiratory normal respiratory effort, clear to auscultation - Cardiovascular Cardiovascular exam: Present: RRR, 15, 16 - Incision Incision: Present: clean and dry, intact - Integumentary Integumentary general surgery: Present: warm and dry - Neurologic Present: CN 2-12 grossly intact - Musculoskeletal Present: normal gait, normal posture - Psychiatric Psychiatric general surgery: Present: appropriate, oriented to person, oriented to place, oriented to time, speech is normal, memory intact - Hospital Course Hospital course: Ms. Tapia is a 48 year old female who presented to the hospital with acute onset of abdominal pain with associated nausea and vomiting. She was found to have symptomatic cholelithiasis. She was admitted to the hospital and started on IV fluids and supportive measures. She was taken to the operating room for a laparoscopic cholecystectomy with cholangiogram with Dr. Kent on 04/06/2018. On postoperative day #1, the patient is tolerating a diet without nausea or vomiting. Her vital signs are stable and she is afebrile. Her postoperative pain is well-controlled. She is voiding and ambulating without difficulty. We will begin discharge planning to home and plan for outpatient follow-up in the next 10-14 days in the outpatient surgical office. - Time Spent with Patient Total time spent providing and/or coordinating discharge services: Less than 30 minutes - Discharge Medications Prescriptions: Ibuprofen [Ibu] 800 mg PO TID #40 tablet Home Medications: HYDROcodone/Acet 7.5/325 mg [[place] 7.5-325 mg] 1 tab PO Q6H PRN 02/23/15 [ History] Montelukast [Singulair] 10 mg PO DAILY 02/23/15 [History] Loratadine [Allergy Relief] 10 mg PO DAILY 04/29/16 [History] SUMAtriptan succinate [Imitrex] 50 mg PO Q2H PRN 04/29/16 [History] Albuterol Sulfate [Albuterol Inhaler] 2 puff IH QID #1 inhaler 07/02/17 [Rx] Ondansetron [Zofran ODT] 8 mg SL Q8H #15 tab 04/02/18 [Rx] Dicyclomine [Bentyl] 10 mg PO QID #20 capsule 04/03/18 [Rx] Beclomethasone Diprop 80mcg [QVAR 80 mcg] 1 puff IH BID 04/05/18 [History] Celecoxib [Celebrex] 100 mg PO BID 04/05/18 [History] Linaclotide [Linzess] 290 mcg PO DAILY 04/05/18 [History] Pantoprazole Sodium [Protonix] 40 mg PO DAILY 04/05/18 [History] Ranitidine HCl [Acid Teacher Industrial Arts] 150 mg PO DAILY 04/05/18 [History] Tizanidine HCl 4 mg PO TID 04/05/18 [History] Topiramate [Topamax] 100 mg PO BID 04/05/18 [History] lamoTRIgine [Lamictal] 100 mg PO BID 04/05/18 [History] Ibuprofen [Ibu] 800 mg PO TID #40 tablet 04/07/18 [Rx] Allergies/Adverse Reactions: 3 Allergy/AdvReac Type Severity Reaction Status Date / Time sulfamethoxazole Allergy Hives Verified 04/02/18 19:05 [From Bactrim] trimethoprim [From Bactrim] Allergy Hives Verified 04/02/18 19:05 Amoxicillin [From Augmentin] AdvReac Vomiting Verified 04/02/18 19:05 clavulanic acid AdvReac Vomiting Verified 04/02/18 19:05 [From Augmentin] Date of admission: 04/05/18 12:53 Primary care physician: Monique Chance CNP Discharging clinician: Kalpesh Kent (Rigo Zaidi) Anticipated date of discharge: 04/07/18 - Impressions ITS Impressions Cholangiogram,Operative 04/06/18 18:04 IMPRESSION: 1. Extravasated contrast of uncertain clinical significance. Clinical correlation requested. 2. Apparent small 5 mm distal common duct filling defect. D/ / Harris Montgomery MD / Harris Montgomery MD Interpreting Provider: Harris Montgomery MD - Patient Status Disposition: Home, Self-Care Condition: Good Functional capacity at discharge: independent ambulation Overall status at discharge: patient is progressing back to baseline - Discharge Instructions Instructions: Gallstones (DC), Laparoscopic Cholecystectomy (DC) Follow Up With: Monique Chance CNP [Primary Care Provider] - Misa Zaidi CNP [Advanced Practice Nurse] - 04/17/18 3:15 pm (surgery follow-up) Additional Instructions: General Surgical Discharge Instructions 1. No pushing, pulling, or lifting greater than 15 lbs for 2 weeks 2. You may shower beginning today, but no tub baths, soaking, or swimming for 2 weeks. 3. You may resume driving when you are off narcotics and are safe to react in a car. 4. Take ibuprofen every 8 hours for discomfort. If this does not relieve discomfort, you may take the as needed Percocet. Take narcotics as directed. Do not take more narcotics then directed and do not share your narcotics with any other person. Do not drink alcohol while on narcotics. 5. Take stool softeners (Colace) or a water based laxative (Miralax) while taking narcotics. You may hold for loose stools. 6. Report any fevers greater than 100.5F, increase abdominal discomfort, drainage that looks like pus, increased redness or pain at the surgical site, or any vomiting. 7. Report any pain in the calves, shortness of breath, or rapid heartbeat. 8. Follow-up in the office as directed. - Diet and Activity Activity: other (See additional instructions above) Diet: advance to your usual diet - Attending Attestation For this encounter, I have reviewed the WHIPPED TOPPING MIXER or PA documentation, treatment plan, and medical decision making; and I have had face to face time with this patient. <Kalpesh Kent - Last Filed: 04/07/18 15:12> Orders not resulted at time of discharge: Pending orders 04/06/18 18:23 Surgical Pathology [PTH] Routine Date of Encounter: 04/07/18 - Discharge Diagnosis (1) Nausea and vomiting Status: Resolved Qualifiers: Vomiting type: unspecified Vomiting Intractability: non-intractable Qualified Code(s): R11.2 - Nausea with vomiting, unspecified (2) Symptomatic cholelithiasis Status: Resolved (3) GERD (gastroesophageal reflux disease) Status: Resolved Qualifiers: Esophagitis presence: esophagitis presence not specified Qualified Code(s) : K21.9 - Gastro-esophageal reflux disease without esophagitis (4) Asthma Status: Chronic Qualifiers: Asthma severity: unspecified severity Asthma persistence: unspecified Asthma complication type: unspecified Qualified Code(s): J45.909 - Unspecified asthma, uncomplicated (5) Migraine Status: Chronic Qualifiers: Migraine type: unspecified Status migrainosus presence: without status migrainosus Intractability: not intractable Qualified Code(s): G43.909 - Migraine, unspecified, not intractable, without status migrainosus (6) Bipolar disorder Status: Chronic Qualifiers: Active/Remission status: remission status unspecified Qualified Code(s): F31.9 - Bipolar disorder, unspecified (7) DVT prophylaxis Status: Acute General Surgery Exam Initial Vital Signs Temp Pulse Resp BP Pulse Ox 98.6 F 92 16 136/91 99 04/05/18 10:01 04/05/18 10:01 04/05/18 10:01 04/05/18 10:01 04/05/18 10:01 - Hospital Course Hospital course: Ms. Tapia is a 48 year old female - Time Spent with Patient Total time spent providing and/or coordinating discharge services: Date of admission: 04/05/18 12:53 Primary care physician: Monique Chance CNP - Impressions ITS Impressions Cholangiogram,Operative 04/06/18 18:04 IMPRESSION: 1. Extravasated contrast of uncertain clinical significance. Clinical correlation requested. 2. Apparent small 5 mm distal common duct filling defect. D/ / Harris Montgomery MD / Harris Montgomery MD Interpreting Provider: Harris Montgomery MD - Attending Attestation I have personally performed a face to face evaluation on this patient. I have reviewed and agree with the care plan. History and Exam by me shows: The patient is seen and evaluated on morning rounds with the resident. She tolerated laparoscopic cholecystectomy very well and has had complete relief of her preoperative pain syndrome. Ready for discharge. I will see her in clinic follow-up in 1 week Kalpesh Kent MD FACS
--- NOTE | 2018-04-09 21:53 | Electrocardiograph Report ---
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
== END 2018-04-07 14:50 | disposition home or self-care (01) ==
LOC: 3BNU 09:59 → EMEROOARM 09:59 → 3BNU 14:10
PROVIDERS: ADMIT Internal Medicine; ATTEND Internal Medicine

== ENCOUNTER 2020-12-07 02:33 | Inpatient (IN) ==
[2020-12-07] MEDS ORDERED: Isovue-370 500 ML BOTTLE IVP ONE (03:18)
[2020-12-07] MEDS ORDERED: Ipratropium/Albuterol Neb 3 ML IH ONE (03:18)
[2020-12-07 03:46] LABS: Basophils % 0.5 %; Hematocrit 39.3 % (35.3-44.9); Hemoglobin 12.6 g/dL (11.5-15.4); Immature Granulocytes % 1.5 % (0-4); Lymphocytes # 1.1 K/mcL (0.6-4.6); Lymphocytes % 13.9 %; Mean Corpuscular HGB Conc 32.1 g/dL (31.6-35.5); Mean Corpuscular Hemoglobin 28.3 pg (28.0-33.3); Mean Corpuscular Volume 88.1 fL (83.0-100.0); Mean Platelet Volume 10.4 fL (9.4-12.4); Monocytes # 0.8 K/mcL (0.0-1.3); Monocytes % 11.1 %; Neutrophils # 5.5 K/mcL (1.6-8.9); Platelet Count 285 K/mcL (140-400); Red Blood Count 4.46 M/mcL (3.82-4.97); Red Cell Distribution Width 13.4 % (11.5-14.5); White Blood Count 7.5 K/mcL (4.3-11.1)
[2020-12-07 04:04] LABS: BUN/Creatinine Ratio 17 (6-26); Blood Urea Nitrogen 17 mg/dL (6-20); Calcium 9.1 mg/dL (8.6-10.3); Carbon Dioxide 21 mEq/L (23-29); Chloride 111 mEq/L (98-107); Glucose 102 mg/dL (70-105); Osmolality,Calculated 292 (280-300); Potassium 3.3 mEq/L (3.5-5.1); Sodium 140 mEq/L (136-145); eGFR For African Americans > 60 (> 60); eGFR For Non-African Americans 60 (> 60)
[2020-12-07 04:05] LABS: Troponin I < 0.03 ng/mL (< 0.04)
[2020-12-07] MEDS ORDERED: cefTRIAXone 1,000 MG in 0.9 % Sodium Chloride Mini Bag 100 ML IVPB ONE (09:06)
[2020-12-07] MEDS ORDERED: Azithromycin 500 MG in 0.9 % Sodium Chloride 250 ML IVPB ONE (09:07)
[2020-12-07] MEDS ORDERED: Naloxone 0.4 MG/ML INJ IVP PRN (09:43)
[2020-12-07] MEDS ORDERED: Acetaminophen 325 MG TABLET PO PRN (09:43)
[2020-12-07] MEDS ORDERED: Ondansetron 4 MG/2 ML VIAL IVP PRN (09:43)
[2020-12-07] MEDS ORDERED: Ipratropium/Albuterol Neb 3 ML IH PRN (09:45)
[2020-12-07] MEDS: predniSONE 20 MG TABLET PO SCH (10:38)
[2020-12-07] MEDS: Benzonatate 100 MG CAPSULE PO PRN ×2 (15:54→23:51)
[2020-12-07] MEDS: GuaiFENesin/Codeine Oral Soln 5 ML UDC PO PRN (19:48)
[2020-12-08] MEDS: GuaiFENesin/Codeine Oral Soln 5 ML UDC PO PRN ×3 (05:54→20:11)
[2020-12-08] MEDS: *HR* Enoxaparin 40 MG/0.4 ML SYRINGE SQ SCH (05:55)
[2020-12-08] MEDS: predniSONE 20 MG TABLET PO SCH (08:42)
[2020-12-08] MEDS: Benzonatate 100 MG CAPSULE PO PRN ×2 (08:42→23:29)
[2020-12-08] MEDS: Azithromycin 500 MG in 0.9 % Sodium Chloride 250 ML IVPB SCH (08:43)
[2020-12-08] MEDS: cefTRIAXone 1,000 MG in Water for inj. (sterile) 10 ML IVP SCH (08:43)
[2020-12-08 10:20] LABS: Basophils % 0.7 %; Eosinophils % 0.2 %; Hematocrit 40.2 % (35.3-44.9); Hemoglobin 12.7 g/dL (11.5-15.4); Immature Granulocytes % 1.3 % (0-4); Lymphocytes # 1.9 K/mcL (0.6-4.6); Lymphocytes % 34.4 %; Mean Corpuscular HGB Conc 31.6 g/dL (31.6-35.5); Mean Corpuscular Hemoglobin 28.5 pg (28.0-33.3); Mean Corpuscular Volume 90.1 fL (83.0-100.0); Mean Platelet Volume 10.2 fL (9.4-12.4); Monocytes # 0.5 K/mcL (0.0-1.3); Monocytes % 9.2 %; Neutrophils # 2.9 K/mcL (1.6-8.9); Platelet Count 248 K/mcL (140-400); Red Blood Count 4.46 M/mcL (3.82-4.97); Red Cell Distribution Width 13.8 % (11.5-14.5); Segmented Neutrophils % 54.2 %; White Blood Count 5.4 K/mcL (4.3-11.1)
[2020-12-08] MEDS ORDERED: methylPREDNISolone 125 MG/2 ML VIAL IVP ONE (10:34)
[2020-12-08 10:40] LABS: BUN/Creatinine Ratio 18 (6-26); Blood Urea Nitrogen 16 mg/dL (6-20); Calcium 8.9 mg/dL (8.6-10.3); Carbon Dioxide 24 mEq/L (23-29); Chloride 110 mEq/L (98-107); Glucose 110 mg/dL (70-105); Magnesium 2.2 mg/dL (1.6-2.6); Osmolality,Calculated 294 (280-300); Potassium 3.5 mEq/L (3.5-5.1); Sodium 141 mEq/L (136-145); eGFR For African Americans > 60 (> 60); eGFR For Non-African Americans > 60 (> 60)
[2020-12-08] MEDS: Ipratropium/Albuterol Neb 3 ML IH SCH ×4 (11:10→23:00)
[2020-12-08] MEDS ORDERED: SUMAtriptan succinate 50 MG TABLET PO PRN (11:45)
[2020-12-08 13:26] LABS: Adenovirus Not Detected (Not Detect); Bordetella Pertussis Not Detected (Not Detect); Chlamydophila pneumoniae Not Detected (Not Detect); Coronavirus 229E Not Detected (Not Detect); Coronavirus HKU1 Not Detected (Not Detect); Coronavirus NL63 Not Detected (Not Detect); Coronavirus OC43 Not Detected (Not Detect); Human Metapneumovirus Not Detected (Not Detect); Human Rhinovirus/Enterovirus Not Detected (Not Detect); Influenza A Subtype 2009 H1 Not Detected (Not Detect); Influenza B Not Detected (Not Detect); Mycoplasma pneumoniae Not Detected (Not Detect); Parainfluenza Virus 1 Not Detected (Not Detect); Parainfluenza Virus 2 Not Detected (Not Detect); Parainfluenza Virus 3 DETECTED (Not Detect); Parainfluenza Virus 4 Not Detected (Not Detect); Respiratory Syncytial Virus Not Detected (Not Detect); SARS-CoV-2 Not Detected (Not Detect)
[2020-12-08] MEDS: Loratadine 10 MG TABLET PO SCH (14:02)
[2020-12-08] MEDS: lamoTRIgine 100 MG TABLET PO SCH ×2 (14:02→20:11)
[2020-12-08] MEDS: Topiramate 100 MG TABLET PO SCH ×2 (14:02→20:11)
[2020-12-08] MEDS: Budesonide/Formoterol 160/4.5 1 PUFF INH IH SCH (19:41)
[2020-12-08] MEDS: *HR* HYDROcodone/Acet 7.5/325 mg TABLET PO PRN (20:10)
[2020-12-08] MEDS: Famotidine 20 MG TABLET PO SCH (20:11)
[2020-12-09] MEDS: Ipratropium/Albuterol Neb 3 ML IH SCH ×6 (03:38→23:39)
[2020-12-09 05:30] LABS: BUN/Creatinine Ratio 16 (6-26); Blood Urea Nitrogen 14 mg/dL (6-20); Carbon Dioxide 23 mEq/L (23-29); Chloride 109 mEq/L (98-107); Glucose 115 mg/dL (70-105); Magnesium 2.3 mg/dL (1.6-2.6); Osmolality,Calculated 289 (280-300); Phosphorous 3.5 mg/dL (2.7-4.5); Potassium 3.7 mEq/L (3.5-5.1); Sodium 139 mEq/L (136-145); eGFR For African Americans > 60 (> 60); eGFR For Non-African Americans > 60 (> 60)
[2020-12-09] MEDS: GuaiFENesin/Codeine Oral Soln 5 ML UDC PO PRN ×3 (05:55→21:33)
[2020-12-09] MEDS: *HR* Enoxaparin 40 MG/0.4 ML SYRINGE SQ SCH (05:56)
[2020-12-09] MEDS ORDERED: MethylPREDNISolone 40 MG/ML VIAL IVP SCH (06:00)
[2020-12-09] MEDS: Budesonide/Formoterol 160/4.5 1 PUFF INH IH SCH ×2 (07:27→20:46)
[2020-12-09] MEDS: lamoTRIgine 100 MG TABLET PO SCH ×2 (08:30→21:33)
[2020-12-09] MEDS: Cyanocobalamin (B-12) 1,000 MCG TABLET PO SCH (08:30)
[2020-12-09] MEDS: Loratadine 10 MG TABLET PO SCH (08:30)
[2020-12-09] MEDS: lisinopriL 5 MG TABLET PO SCH (08:30)
[2020-12-09] MEDS: Topiramate 100 MG TABLET PO SCH ×2 (08:30→21:33)
[2020-12-09] MEDS: cefTRIAXone 1,000 MG in Water for inj. (sterile) 10 ML IVP SCH (08:30)
[2020-12-09] MEDS: Azithromycin 500 MG in 0.9 % Sodium Chloride 250 ML IVPB SCH (08:31)
[2020-12-09] MEDS: Benzonatate 100 MG CAPSULE PO PRN ×2 (08:44→16:53)
[2020-12-09] MEDS: MethylPREDNISolone 40 MG/ML VIAL IVP SCH ×2 (13:32→21:33)
[2020-12-09] MEDS: *HR* HYDROcodone/Acet 7.5/325 mg TABLET PO PRN (20:08)
[2020-12-09] MEDS: Famotidine 20 MG TABLET PO SCH (21:33)
[2020-12-10] MEDS: Ipratropium/Albuterol Neb 3 ML IH SCH ×5 (03:52→20:04)
[2020-12-10] MEDS: MethylPREDNISolone 40 MG/ML VIAL IVP SCH ×2 (05:17→17:01)
[2020-12-10] MEDS: *HR* Enoxaparin 40 MG/0.4 ML SYRINGE SQ SCH (05:17)
[2020-12-10] MEDS: GuaiFENesin/Codeine Oral Soln 5 ML UDC PO PRN ×2 (05:28→17:01)
[2020-12-10] MEDS: Loratadine 10 MG TABLET PO SCH (07:37)
[2020-12-10] MEDS: Benzonatate 100 MG CAPSULE PO PRN ×2 (07:37→19:43)
[2020-12-10] MEDS: Budesonide/Formoterol 160/4.5 1 PUFF INH IH SCH ×2 (07:37→20:04)
[2020-12-10] MEDS: Cyanocobalamin (B-12) 1,000 MCG TABLET PO SCH (07:37)
[2020-12-10] MEDS: lamoTRIgine 100 MG TABLET PO SCH ×2 (07:37→19:44)
[2020-12-10] MEDS: cefTRIAXone 1,000 MG in Water for inj. (sterile) 10 ML IVP SCH (07:38)
[2020-12-10] MEDS: Azithromycin 500 MG in 0.9 % Sodium Chloride 250 ML IVPB SCH (07:38)
[2020-12-10] MEDS: lisinopriL 5 MG TABLET PO SCH (07:38)
[2020-12-10] MEDS: Topiramate 100 MG TABLET PO SCH ×2 (07:39→19:44)
[2020-12-10] MEDS: *HR* HYDROcodone/Acet 7.5/325 mg TABLET PO PRN ×2 (08:21→19:43)
[2020-12-10] MEDS ORDERED: Ketorolac 15 MG/ML VIAL IVP ONE (15:01)
[2020-12-10] MEDS: Famotidine 20 MG TABLET PO SCH (19:43)
[2020-12-11] MEDS: Ipratropium/Albuterol Neb 3 ML IH SCH ×6 (00:20→19:55)
[2020-12-11] MEDS: GuaiFENesin/Codeine Oral Soln 5 ML UDC PO PRN ×2 (02:08→14:49)
[2020-12-11] MEDS: *HR* Enoxaparin 40 MG/0.4 ML SYRINGE SQ SCH (05:20)
[2020-12-11] MEDS: MethylPREDNISolone 40 MG/ML VIAL IVP SCH ×2 (05:20→17:25)
[2020-12-11] MEDS: Topiramate 100 MG TABLET PO SCH ×2 (07:40→19:30)
[2020-12-11] MEDS: cefTRIAXone 1,000 MG in Water for inj. (sterile) 10 ML IVP SCH (07:40)
[2020-12-11] MEDS: lamoTRIgine 100 MG TABLET PO SCH ×2 (07:40→19:30)
[2020-12-11] MEDS: Benzonatate 100 MG CAPSULE PO PRN (07:40)
[2020-12-11] MEDS: Cyanocobalamin (B-12) 1,000 MCG TABLET PO SCH (07:40)
[2020-12-11] MEDS: Loratadine 10 MG TABLET PO SCH (07:40)
[2020-12-11] MEDS: lisinopriL 5 MG TABLET PO SCH (07:40)
[2020-12-11] MEDS: Azithromycin 500 MG in 0.9 % Sodium Chloride 250 ML IVPB SCH (07:41)
[2020-12-11] MEDS: Budesonide/Formoterol 160/4.5 1 PUFF INH IH SCH ×2 (07:54→19:55)
[2020-12-11] MEDS ORDERED: Isovue-370 500 ML BOTTLE IVP ONE (09:18)
[2020-12-11] MEDS: *HR* HYDROcodone/Acet 7.5/325 mg TABLET PO PRN (14:48)
[2020-12-11] MEDS: Famotidine 20 MG TABLET PO SCH (19:30)
[2020-12-12] MEDS: Ipratropium/Albuterol Neb 3 ML IH SCH ×4 (00:30→10:59)
[2020-12-12] MEDS: MethylPREDNISolone 40 MG/ML VIAL IVP SCH (05:07)
[2020-12-12] MEDS: *HR* Enoxaparin 40 MG/0.4 ML SYRINGE SQ SCH (05:08)
[2020-12-12 06:52] VITALS: BP 143/91
[2020-12-12] MEDS: Budesonide/Formoterol 160/4.5 1 PUFF INH IH SCH (07:32)
[2020-12-12] MEDS: lisinopriL 5 MG TABLET PO SCH (08:49)
[2020-12-12] MEDS: Loratadine 10 MG TABLET PO SCH (08:49)
[2020-12-12] MEDS: Cyanocobalamin (B-12) 1,000 MCG TABLET PO SCH (08:49)
[2020-12-12] MEDS: lamoTRIgine 100 MG TABLET PO SCH (08:49)
[2020-12-12] MEDS: Topiramate 100 MG TABLET PO SCH (08:49)
[2020-12-12] MEDS: cefTRIAXone 1,000 MG in Water for inj. (sterile) 10 ML IVP SCH (08:49)
[2020-12-12] MEDS: Azithromycin 500 MG in 0.9 % Sodium Chloride 250 ML IVPB SCH (08:50)
== END 2020-12-12 11:56 | disposition home or self-care (01) | DRG 139 ==
LOC: EMEROOARM 02:33 → 3BNU 02:33 → SUATTDRO 09:19 → 3BNU 10:25
PROVIDERS: ADMIT Internal Medicine; ATTEND Internal Medicine

== ENCOUNTER 2021-01-01 15:42 | Observation (INO) ==
[2021-01-01] MEDS ORDERED: Aspirin 81 MG TAB.CHEW PO ONE (15:58)
[2021-01-01] MEDS: Nitroglycerin 0.4 MG TAB.SUBL SL PRN ×2 (16:10→16:20)
[2021-01-01] MEDS ORDERED: *HR* Heparin 5,000 UNIT/ML VIAL IVP PRN ×2 (16:22)
[2021-01-01] MEDS ORDERED: *HR* Heparin 5,000 UNIT/ML VIAL IVP ONE (16:22)
[2021-01-01] MEDS ORDERED: Heparin 25,000UNIT/250ML 1/2NS 25,000 UNIT/250 ML IV.SOLN IVC SCH (16:30)
[2021-01-01 16:42] LABS: Basophils # 0.1 K/mcL (0.0-0.2); Basophils % 0.7 %; Eosinophils # 0.2 K/mcL (0.0-0.6); Hematocrit 40.2 % (35.3-44.9); Hemoglobin 12.6 g/dL (11.5-15.4); Immature Granulocytes % 1.1 % (0-4); Lymphocytes # 2.3 K/mcL (0.6-4.6); Lymphocytes % 31.2 %; Mean Corpuscular HGB Conc 31.3 g/dL (31.6-35.5); Mean Corpuscular Hemoglobin 28.5 pg (28.0-33.3); Mean Platelet Volume 10.3 fL (9.4-12.4); Monocytes # 0.5 K/mcL (0.0-1.3); Monocytes % 6.6 %; Neutrophils # 4.2 K/mcL (1.6-8.9); Platelet Count 263 K/mcL (140-400); Red Blood Count 4.42 M/mcL (3.82-4.97); Red Cell Distribution Width 13.7 % (11.5-14.5); Segmented Neutrophils % 57.4 %; White Blood Count 7.3 K/mcL (4.3-11.1)
[2021-01-01 16:52] LABS: Heparin anti-factor XA UFH 0.06 IU/mL (0.30-0.70)
[2021-01-01 16:53] LABS: INR 1.2; Prothrombin Time 13.6 Seconds (9.4-12.1)
[2021-01-01 17:04] LABS: Alanine Aminotransferase 15 Units/L (7-52); Albumin 4.2 g/dL (3.5-5.7); Albumin/Globulin Ratio 1.7 (1.1-2.2); Alkaline Phosphatase 72 Units/L (34-104); Aspartate Amino Transferase 11 Units/L (13-39); BUN/Creatinine Ratio 17 (6-26); Bilirubin,Direct 0.1 mg/dL (0.0-0.2); Bilirubin,Indirect 0.3 mg/dL (0.0-1.0); Bilirubin,Total 0.4 mg/dL (0.3-1.0); Blood Urea Nitrogen 17 mg/dL (6-20); Carbon Dioxide 21 mEq/L (23-29); Chloride 108 mEq/L (98-107); Globulin 2.5 g/dL (2.4-3.5); Glucose 123 mg/dL (70-105); Lipase 7 Units/L (11-82); Osmolality,Calculated 297 (280-300); Potassium 3.5 mEq/L (3.5-5.1); Sodium 142 mEq/L (136-145); Total Protein 6.7 g/dL (6.4-8.9); Troponin I < 0.03 ng/mL (< 0.04); eGFR For African Americans > 60 (> 60); eGFR For Non-African Americans 58 (> 60)
[2021-01-01] MEDS ORDERED: *HR* HYDROcodone/Acet 5/325 mg TABLET PO PRN (17:35)
[2021-01-01] MEDS ORDERED: Ondansetron 4 MG/2 ML VIAL IVP PRN (17:35)
[2021-01-01] MEDS ORDERED: Naloxone 0.4 MG/ML INJ IVP PRN (17:35)
[2021-01-01] MEDS: Nitroglycerin 0.4 MG PATCH.TD24 TD SCH (18:10)
[2021-01-01] MEDS: carvediloL 6.25 MG TABLET PO SCH (18:12)
[2021-01-01] MEDS: Topiramate 100 MG TABLET PO SCH (19:58)
[2021-01-01] MEDS: lamoTRIgine 100 MG TABLET PO SCH (19:58)
[2021-01-02 02:05] LABS: BUN/Creatinine Ratio 17 (6-26); Blood Urea Nitrogen 16 mg/dL (6-20); Calcium 8.6 mg/dL (8.6-10.3); Carbon Dioxide 20 mEq/L (23-29); Chloride 111 mEq/L (98-107); Chol/HDL Ratio 5.1 (0-4.9); Cholesterol 197 mg/dL (< 200); Glucose 103 mg/dL (70-105); HDL Cholesterol 39 mg/dL (40-59); LDL Cholesterol,Calculated 137 mg/dL (< 100); Magnesium 2.2 mg/dL (1.6-2.6); Osmolality,Calculated 301 (280-300); Potassium 3.8 mEq/L (3.5-5.1); Sodium 145 mEq/L (136-145); Triglycerides 104 mg/dL (< 150); eGFR For African Americans > 60 (> 60); eGFR For Non-African Americans > 60 (> 60)
[2021-01-02] MEDS ORDERED: SUMAtriptan succinate 50 MG TABLET PO PRN (05:02)
[2021-01-02] MEDS ORDERED: *HR* HYDROmorphone (PF) 1 MG/ML SYRINGE IVP ONE (08:17)
[2021-01-02] MEDS: lamoTRIgine 100 MG TABLET PO SCH ×2 (09:29→19:50)
[2021-01-02] MEDS: Aspirin Enteric Coated 81 MG Tablet PO SCH (09:29)
[2021-01-02] MEDS: carvediloL 6.25 MG TABLET PO SCH ×2 (09:30→19:17)
[2021-01-02] MEDS: Topiramate 100 MG TABLET PO SCH ×2 (09:30→19:50)
[2021-01-02] MEDS: lisinopriL 5 MG TABLET PO SCH (09:30)
[2021-01-02] MEDS: Nitroglycerin 0.4 MG PATCH.TD24 TD SCH ×2 (09:32→12:45)
[2021-01-02] MEDS: Tiotropium 10 INH DOSE IH SCH (10:05)
[2021-01-02] MEDS ORDERED: Morphine Sulfate 2 MG/ML SYRINGE IVP PRN (13:00)
[2021-01-02] MEDS ORDERED: GI Cocktail 40 ML EACH PO ONE (13:05)
[2021-01-02] MEDS ORDERED: Isovue-370 500 ML BOTTLE IVP ONE (13:47)
[2021-01-02 14:10] LABS: Amphetamine Screen,Urine Negative ng/mL (Cutoff=1000); Barbiturate Screen,Urine Negative ng/mL (Cutoff=200); Benzodiazepines Screen,Urine Negative ng/mL (Cutoff=200); Cannabinoid Screen,Urine Negative ng/mL (Cutoff = 50); Cocaine Screen,Urine Negative ng/mL (Cutoff= 300); Opiate Screen,Urine Positive ng/mL (Cutoff=300); Phencyclidine Screen,Urine Negative ng/mL (Cutoff=25)
[2021-01-02] MEDS ORDERED: *HR* Promethazine 25 MG/ML VIAL IM PRN (23:30)
[2021-01-03 07:06] VITALS: BP 116/76
[2021-01-03] MEDS: Tiotropium 10 INH DOSE IH SCH (07:54)
[2021-01-03] MEDS: Nitroglycerin 0.4 MG PATCH.TD24 TD SCH (08:01)
[2021-01-03] MEDS: Topiramate 100 MG TABLET PO SCH (08:04)
[2021-01-03] MEDS: carvediloL 6.25 MG TABLET PO SCH (08:04)
[2021-01-03] MEDS: lisinopriL 5 MG TABLET PO SCH (08:04)
[2021-01-03] MEDS: lamoTRIgine 100 MG TABLET PO SCH (08:04)
[2021-01-03] MEDS: Aspirin Enteric Coated 81 MG Tablet PO SCH (08:04)
[2021-01-03 08:23] LABS: Basophils % 0.4 %; Eosinophils # 0.1 K/mcL (0.0-0.6); Eosinophils % 2.7 %; Hematocrit 39.3 % (35.3-44.9); Hemoglobin 12.3 g/dL (11.5-15.4); Immature Granulocytes % 0.8 % (0-4); Lymphocytes # 1.5 K/mcL (0.6-4.6); Lymphocytes % 29.8 %; Mean Corpuscular HGB Conc 31.3 g/dL (31.6-35.5); Mean Corpuscular Hemoglobin 28.5 pg (28.0-33.3); Mean Corpuscular Volume 91.2 fL (83.0-100.0); Mean Platelet Volume 9.8 fL (9.4-12.4); Monocytes # 0.3 K/mcL (0.0-1.3); Monocytes % 6.8 %; Neutrophils # 2.9 K/mcL (1.6-8.9); Platelet Count 231 K/mcL (140-400); Red Blood Count 4.31 M/mcL (3.82-4.97); Red Cell Distribution Width 13.8 % (11.5-14.5); Segmented Neutrophils % 59.5 %; White Blood Count 4.9 K/mcL (4.3-11.1)
[2021-01-03 08:43] LABS: BUN/Creatinine Ratio 12 (6-26); Blood Urea Nitrogen 12 mg/dL (6-20); Calcium 8.9 mg/dL (8.6-10.3); Carbon Dioxide 23 mEq/L (23-29); Chloride 110 mEq/L (98-107); Glucose 98 mg/dL (70-105); Osmolality,Calculated 288 (280-300); Potassium 3.8 mEq/L (3.5-5.1); Sodium 139 mEq/L (136-145); eGFR For African Americans > 60 (> 60); eGFR For Non-African Americans 58 (> 60)
[2021-01-03] MEDS ORDERED: Pantoprazole 40 MG VIAL IVP SCH (08:55)
== END 2021-01-03 10:25 | disposition home or self-care (01) ==
LOC: 3BNU 15:42 → EMEROOARM 15:42 → SUATTDRO 17:48 → 3BNU 17:56
PROVIDERS: ADMIT Internal Medicine; ATTEND Family Medicine

== ENCOUNTER 2021-11-24 21:13 | Observation (INO) ==
[2021-11-24] MEDS ORDERED: methylPREDNISolone 125 MG/2 ML VIAL IVP ONE (21:16)
[2021-11-24] MEDS ORDERED: 0.9 % Sodium Chloride 1,000 ML IVC ONE (21:16)
[2021-11-24] MEDS ORDERED: Albuterol 2.5 MG/3 ML NEBULIZER IH ONE ×2 (21:16→23:02)
[2021-11-24] MEDS ORDERED: Ipratropium/Albuterol Neb 3 ML IH ONE ×2 (21:16→23:02)
[2021-11-24] MEDS ORDERED: Isovue-370 500 ML BOTTLE IVP ONE (21:17)
[2021-11-24 21:42] LABS: Basophils % 0.3 %; Hematocrit 40.1 % (35.3-44.9); Hemoglobin 13.3 g/dL (11.5-15.4); Immature Granulocytes % 0.9 % (0-4); Lymphocytes # 0.7 K/mcL (0.6-4.6); Lymphocytes % 20.9 %; Mean Corpuscular HGB Conc 33.2 g/dL (31.6-35.5); Mean Corpuscular Hemoglobin 29.6 pg (28.0-33.3); Mean Corpuscular Volume 89.3 fL (83.0-100.0); Mean Platelet Volume 9.6 fL (9.4-12.4); Monocytes # 0.1 K/mcL (0.0-1.3); Monocytes % 4.1 %; Neutrophils # 2.6 K/mcL (1.6-8.9); Platelet Count 263 K/mcL (140-400); Red Blood Count 4.49 M/mcL (3.82-4.97); Red Cell Distribution Width 13.5 % (11.5-14.5); Segmented Neutrophils % 73.8 %; White Blood Count 3.5 K/mcL (4.3-11.1)
[2021-11-24 22:02] LABS: Alanine Aminotransferase 13 Units/L (7-52); Albumin 4.1 g/dL (3.5-5.7); Albumin/Globulin Ratio 1.6 (1.1-2.2); Alkaline Phosphatase 75 Units/L (34-104); Aspartate Amino Transferase 13 Units/L (13-39); BUN/Creatinine Ratio 13 (6-26); Bilirubin,Indirect 0.3 mg/dL (0.0-1.0); Bilirubin,Total 0.3 mg/dL (0.3-1.0); Blood Urea Nitrogen 11 mg/dL (6-20); Calcium 8.9 mg/dL (8.6-10.3); Carbon Dioxide 16 mEq/L (23-29); Chloride 109 mEq/L (98-107); Globulin 2.6 g/dL (2.4-3.5); Glucose 175 mg/dL (70-105); Osmolality,Calculated 288 (280-300); Potassium 3.9 mEq/L (3.5-5.1); Sodium 137 mEq/L (136-145); Total Protein 6.7 g/dL (6.4-8.9); Troponin I < 0.03 ng/mL (< 0.04); eGFR For African Americans > 60 (> 60); eGFR For Non-African Americans > 60 (> 60)
[2021-11-24 22:26] LABS: Influenza A PCR Negative (Negative); Influenza B PCR Negative (Negative); Resp. Syncytial Virus PCR Negative (Negative)
[2021-11-24 22:50] LABS: SARS-CoV-2 by PCR (In House) Negative (Negative)
[2021-11-24] MEDS ORDERED: Azithromycin 250 MG TABLET PO ONE (23:02)
[2021-11-24] MEDS ORDERED: cefTRIAXone 1,000 MG in 0.9 % Sodium Chloride 10 ML IVP ONE (23:35)
[2021-11-25] MEDS ORDERED: Ondansetron 4 MG/2 ML VIAL IVP PRN (01:43)
[2021-11-25] MEDS ORDERED: Melatonin 3 MG TABLET PO PRN (01:43)
[2021-11-25] MEDS ORDERED: Naloxone 0.4 MG/ML INJ IVP PRN (01:43)
[2021-11-25] MEDS ORDERED: Acetaminophen 325 MG TABLET PO PRN (01:43)
[2021-11-25] MEDS ORDERED: 0.9 % Sodium Chloride 1,000 ML IVC SCH (01:45)
[2021-11-25] MEDS ORDERED: 0.9 % Sodium Chloride 1,000 ML IVC ONE (02:07)
[2021-11-25 02:35] LABS: Hematocrit 36.7 % (35.3-44.9); Mean Corpuscular HGB Conc 32.7 g/dL (31.6-35.5); Mean Corpuscular Hemoglobin 29.7 pg (28.0-33.3); Mean Corpuscular Volume 90.8 fL (83.0-100.0); Mean Platelet Volume 9.5 fL (9.4-12.4); Platelet Count 234 K/mcL (140-400); Red Blood Count 4.04 M/mcL (3.82-4.97); Red Cell Distribution Width 13.6 % (11.5-14.5); White Blood Count 4.6 K/mcL (4.3-11.1)
[2021-11-25 02:57] LABS: BUN/Creatinine Ratio 14 (6-26); Blood Urea Nitrogen 11 mg/dL (6-20); Calcium 8.4 mg/dL (8.6-10.3); Carbon Dioxide 15 mEq/L (23-29); Chloride 111 mEq/L (98-107); Glucose 207 mg/dL (70-105); Osmolality,Calculated 291 (280-300); Potassium 3.2 mEq/L (3.5-5.1); Sodium 138 mEq/L (136-145); eGFR For African Americans > 60 (> 60); eGFR For Non-African Americans > 60 (> 60)
[2021-11-25] MEDS: *HR* Heparin 5,000 UNIT/ML VIAL SQ SCH ×3 (05:51→20:37)
[2021-11-25] MEDS: FLUoxetine 20 MG CAPSULE PO SCH (08:55)
[2021-11-25] MEDS: Aspirin Enteric Coated 81 MG Tablet PO SCH (08:55)
[2021-11-25] MEDS: Loratadine 10 MG TABLET PO SCH (08:56)
[2021-11-25] MEDS ORDERED: lamoTRIgine 100 MG TABLET PO SCH (09:00)
[2021-11-25] MEDS ORDERED: Topiramate 100 MG TABLET PO SCH (09:00)
[2021-11-25] MEDS: *HR* HYDROcodone/Acet 7.5/325 mg TABLET PO PRN (09:09)
[2021-11-25] MEDS ORDERED: Benzonatate 100 MG CAPSULE PO PRN (13:47)
[2021-11-25] MEDS ORDERED: SUMAtriptan succinate 50 MG TABLET PO PRN (13:47)
[2021-11-25] MEDS ORDERED: Nitroglycerin 0.4 MG TAB.SUBL SL PRN (13:47)
[2021-11-25] MEDS: Budesonide/Formoterol 160/4.5 1 PUFF INH IH SCH (19:37)
[2021-11-25] MEDS: Azithromycin 500 MG in 0.9 % Sodium Chloride 250 ML IVPB SCH (20:37)
[2021-11-25] MEDS: Famotidine 20 MG TABLET PO SCH (20:37)
[2021-11-25] MEDS: cefTRIAXone 2,000 MG in 0.9 % Sodium Chloride 20 ML IVP SCH (20:38)
[2021-11-25] MEDS ORDERED: cefTRIAXone 1,000 MG in 0.9 % Sodium Chloride Mini Bag 100 ML IVPB SCH (21:00)
[2021-11-26] MEDS: *HR* Heparin 5,000 UNIT/ML VIAL SQ SCH ×3 (04:53→20:23)
[2021-11-26] MEDS ORDERED: Tiotropium 10 INH DOSE IH ONE (07:44)
[2021-11-26] MEDS: Tiotropium 10 INH DOSE IH SCH (07:45)
[2021-11-26] MEDS: Budesonide/Formoterol 160/4.5 1 PUFF INH IH SCH ×2 (07:46→19:57)
[2021-11-26] MEDS: FLUoxetine 20 MG CAPSULE PO SCH (08:23)
[2021-11-26] MEDS: Loratadine 10 MG TABLET PO SCH (08:23)
[2021-11-26] MEDS: lamoTRIgine 100 MG TABLET PO SCH (08:23)
[2021-11-26] MEDS: Topiramate 100 MG TABLET PO SCH (08:23)
[2021-11-26] MEDS: Aspirin Enteric Coated 81 MG Tablet PO SCH (08:23)
[2021-11-26] MEDS: *HR* HYDROcodone/Acet 7.5/325 mg TABLET PO PRN (16:16)
[2021-11-26] MEDS: Famotidine 20 MG TABLET PO SCH (20:19)
[2021-11-26] MEDS: Azithromycin 500 MG in 0.9 % Sodium Chloride 250 ML IVPB SCH (20:20)
[2021-11-26] MEDS: cefTRIAXone 2,000 MG in 0.9 % Sodium Chloride 20 ML IVP SCH (20:23)
[2021-11-27 03:09] LABS: Basophils % 0.9 %; Eosinophils % 0.9 %; Hematocrit 34.5 % (35.3-44.9); Hemoglobin 11.2 g/dL (11.5-15.4); Immature Granulocytes % 3.9 % (0-4); Lymphocytes # 1.6 K/mcL (0.6-4.6); Lymphocytes % 34.4 %; Mean Corpuscular HGB Conc 32.5 g/dL (31.6-35.5); Mean Corpuscular Hemoglobin 29.9 pg (28.0-33.3); Mean Platelet Volume 9.9 fL (9.4-12.4); Monocytes # 0.2 K/mcL (0.0-1.3); Neutrophils # 2.5 K/mcL (1.6-8.9); Platelet Count 224 K/mcL (140-400); Red Blood Count 3.75 M/mcL (3.82-4.97); Red Cell Distribution Width 13.6 % (11.5-14.5); Segmented Neutrophils % 54.9 %; White Blood Count 4.6 K/mcL (4.3-11.1)
[2021-11-27 03:27] LABS: BUN/Creatinine Ratio 17 (6-26); Blood Urea Nitrogen 16 mg/dL (6-20); Calcium 8.6 mg/dL (8.6-10.3); Carbon Dioxide 26 mEq/L (23-29); Chloride 107 mEq/L (98-107); Glucose 100 mg/dL (70-105); Osmolality,Calculated 293 (280-300); Potassium 3.9 mEq/L (3.5-5.1); Sodium 141 mEq/L (136-145); eGFR For African Americans > 60 (> 60); eGFR For Non-African Americans > 60 (> 60)
[2021-11-27] MEDS ORDERED: Morphine Sulfate 2 MG/ML SYRINGE IVP ONE (04:43)
[2021-11-27] MEDS: *HR* Heparin 5,000 UNIT/ML VIAL SQ SCH ×2 (05:05→12:49)
[2021-11-27] MEDS ORDERED: Prochlorperazine 10 MG/2 ML VIAL IVP PRN (05:07)
[2021-11-27 06:51] VITALS: TEMP 98.3
[2021-11-27] MEDS: Aspirin Enteric Coated 81 MG Tablet PO SCH (08:01)
[2021-11-27] MEDS: FLUoxetine 20 MG CAPSULE PO SCH (08:01)
[2021-11-27] MEDS: lamoTRIgine 100 MG TABLET PO SCH (08:01)
[2021-11-27] MEDS: Loratadine 10 MG TABLET PO SCH (08:01)
[2021-11-27] MEDS: Topiramate 100 MG TABLET PO SCH (08:01)
[2021-11-27] MEDS: Tiotropium 10 INH DOSE IH SCH (10:38)
[2021-11-27] MEDS: Budesonide/Formoterol 160/4.5 1 PUFF INH IH SCH (10:38)
[2021-11-27 12:37] VITALS: BP 122/74; PULSE 67; O2SAT 96
== END 2021-11-27 15:14 | disposition home or self-care (01) ==
LOC: EMEROOARM 21:13 → 2ANU 21:13
PROVIDERS: ADMIT Student in an Organized Health Care Education/Training Program; ATTEND Student in an Organized Health Care Education/Training Program